=== PATIENT | female | born 1995 | race Caucasian/White ===

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

== ENCOUNTER 2017-04-22 08:32 | Emergency (ER) ==
[2017-04-22 08:47] VITALS: BP 140/85; TEMP 97.9; BMI 30.1
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
[2017-04-22] MEDS ORDERED: NEXT CHOICE ONE DOSE PO STA (10:40)
[2017-04-22 10:46] LABS: BILIRUBIN,URINE 1+ (NEGATIVE); KETONES,URINE 3+ (NEGATIVE); LEUKOCYTE ESTERASE ,URINE Negative (NEGATIVE); NITRITE,URINE Negative (NEGATIVE); PH,URINE 5.5 (5-9); PROTEIN,URINE 1+ (NEGATIVE); URINE, BLOOD Negative (NEGATIVE)
[2017-04-22 10:47] LABS: URINE PREGNANCY INTERNAL QC INTERNAL QC VALID
[2017-04-22 10:59] LABS: COCAIN SCREEN,URINE NEGATIVE (NEGATIVE)
[2017-04-22 11:00] LABS: ADD URINE MICROSCOPIC YES
[2017-04-22 11:04] LABS: KOH PREP NO FUNGAL ELEMENTS (NOT PRESENT); WBC NONE SEEN (FEW)
[2017-04-22 11:18] LABS: HIV INTERNAL QC INTERNAL QC VALID; HIV-1 p24 ANTIGEN SCREEN NEGATIVE (NEGATIVE); HIV-1/2 ANTIBODY SCREEN NEGATIVE (NEGATIVE)
[2017-04-23 07:14] LABS: RAPID PLASMA REAGIN Non Reactive (Non Reactive)
== END 2017-04-22 12:25 | disposition home or self-care (01) ==
LOC: ED 08:32
DX: T76.21XA Adult sexual abuse, suspected, initial encounter (principal); F17.210 Nicotine dependence, cigarettes, uncomplicated
CPT/HCPCS: 36415; 80074; 80306; 81001; 81025; 86592; 87210; 87800; 99285

== ENCOUNTER 2018-08-28 14:32 | Emergency (ER) | payer OTHER ==
[2018-08-28 14:37] VITALS: BP 145/95; TEMP 97.6; BMI 33.3
[2018-08-28] MEDS ORDERED: ZOFRAN 4 MG/2 ML IM STA (14:59)
[2018-08-28 15:35] LABS: URINE PREGNANCY TEST NEGATIVE (NEGATIVE)
--- NOTE | 2018-08-28 16:23 | CT ---
EXAM: CT of the abdomen pelvis without contrast History: Abdominal pain, incontinence. Comparison: CT abdomen pelvis 11/19/2013. Technique: Multiplanar CT images through the abdomen pelvis were obtained without the administration of IV contrast Findings: Lung bases are clear. No acute osseous abnormalities. Gallbladder is not well distended. No focal liver or splenic lesions. No peripancreatic inflammatio n. Adrenal glands are unremarkable. No renal stones and no hydronephrosis. The appendix is not dil ated or inflamed. Mildly dilated fluid-filled loops of colon. No evidence for bowel obstruction. N o abdominal aortic aneurysm. Bladder is not well distended. No bladder wall thickening. Adnexal st ructures appear appropriate for patient's age. No pathologically enlarged lymph nodes. No free air and no ascites. No bowel wall thickening. No pericolonic inflammation. Impression: Mild gastroenteritis and diarrhea, probably viral etiology.
--- NOTE | 2018-08-28 16:32 | ED.PDOC ---
General ED Provider: Dr. THAD MCNAMARA Chief Complaint: Nausea/Vomiting Stated Complaint: n/v/d/ Time Seen by Physician: 14:37 (seen with alexander at all times ) Mode of Arrival: Walk-In Information Source: Patient Exam Limitations: No limitations Nursing and Triage Documentation Reviewed and Agree: Yes Does patient meet sepsis criteria?: No If yes, has appropriate treatment been initiated?: No System Inflammatory Response Syndrome: Not Applicable Sepsis Protocol: For patient's 13 years and over: Temp is 96.8 and below OR 101 and greater Pulse >90 BPM Resp >20/minute Acutely Altered Mental Status Are patient's symptoms suggestive of a new infection, such as: -Pneumonia -Skin, Soft Tissue -Endocarditis -UTI -Bone, Joint Infection -Implantable Device -Acute Abdominal Infection -Wound Infection -Meningitis -Blood Stream Catheter Infection -Unknown GI Complaint Exam - Abdominal Pain Complaint/Exam Onset: Gradual Duration: 1 day Symptoms Are: Still present Timing: Intermittent Initial Severity: Moderate Current Severity: Mild Location of Pain: Discrete Character: Reports: Aching Aggravating: Reports: None Alleviating: Reports: None Associated Signs and Symptoms: Reports: Nausea, Vomiting, Diarrhea. Denies: Diaphoresis, Fever, Cough, Chest pain, Dizziness, Back pain, Constipation, Blood in stool, Dysuria, Urinary frequency, Decreased urine output, Decreased appetite, Vaginal bleeding, Vaginal discharge, Sore throat, Decreased activity Related History: Reports: Similar episode AAA Risk Factors: Reports: None Cardiac Risk Factors: Reports: None Ectopic Risk Factors: Reports: None Ovarian Torsion Risk Factors: Reports: None Surgical Obstruction Risk Factors: Reports: None Related Surgical History: Reports: None Patient Rh Status: Unknown Abdominal Findings: Present: Rebound tenderness Differential Diagnoses: Appendicitis, Bowel Obstruction, Constipation, Diverticulitis, Gastroenteritis, UTI Review of Systems - Review Of Systems Constitutional: Reports: No symptoms Eyes: Reports: No symptoms Ears, Nose, Mouth, Throat: Reports: No symptoms Respiratory: Reports: No symptoms Cardiac: Reports: No symptoms GI: Reports: Abdominal pain, Diarrhea, Nausea, Poor appetite, Vomiting : Reports: No symptoms Musculoskeletal: Reports: No symptoms Skin: Reports: No symptoms Neurological: Reports: No symptoms Endocrine: Reports: No symptoms Hematologic/Lymphatic: Reports: No symptoms All Other Systems: Reviewed and Negative Past Medical History - Past Medical History Previously Healthy: Yes Endocrine: Reports: None Cardiovascular: Reports: None Respiratory: Reports: Asthma, Other (FREQUENT EPISTAXIS tonsilectomy nose cauterized[ End ]) Hematological: Reports: None Gastrointestinal: Reports: None Genitourinary: Reports: None Neuro/Psych: Reports: Bipolar Disorder Musculoskeletal: Reports: None Cancer: Reports: None Last Menstrual Period: 1 week ago - Surgical History General Surgical History: Reports: Tonsillectomy, Other (nose cauterized), Unknown - Family History Family History: Reports: Unknown - Social History Smoking Status: Current every day smoker Hx Substance Use: Yes (meth) Alcohol Screening: None Physical Exam - Physical Exam Appearance: Well-appearing, No pain distress, Well-nourished Eyes: ROBY, EOMI, Conjunctiva clear ENT: Ears normal, Nose normal, Oropharynx normal Respiratory: Airway patent, Breath sounds clear, Breath sounds equal, Respirations nonlabored Cardiovascular: RRR, Pulses normal, No rub, No murmur GI/: Soft, Nontender, No masses, Bowel sounds normal, No Organomegaly Musculoskeletal: Normal strength, ROM intact, No edema, No calf tenderness Skin: Warm, Dry, Normal color Neurological: Sensation intact, Motor intact, Reflexes intact, Cranial nerves intact, Alert, Oriented Psychiatric: Affect appropriate, Mood appropriate Interpretation - Radiology Interpretation Radiology Interpretation By: Radiologist Radiology Results: No acute changes Critical Care Note - Critical Care Note Total Time (mins): 0 Course - Course Hematology/Chemistry: 08/28/18 15:02 08/28/18 15:02 Orders, Labs, Meds: Lab Review 08/28/18 08/28/18 08/28/18 14:55 14:55 14:55 WBC RBC Hgb Hct MCV MCH MCHC RDW Coeff of Christoph Plt Count Immature Gran % (Auto) Neut % (Auto) Lymph % (Auto) [place] % (Auto) Eos % (Auto) Baso % (Auto) Immature Gran # (Auto) Neut # (Auto) Lymph # (Auto) [place] # (Auto) Eos # (Auto) Baso # (Auto) Sodium Potassium Chloride Carbon Dioxide Anion Gap BUN Creatinine Estimated GFR (MDRD) BUN/Creatinine Ratio Glucose Calcium Total Bilirubin AST ALT Alkaline Phosphatase Total Protein Albumin Globulin Albumin/Globulin Ratio Amylase Lipase Urine Color Yellow Urine Clarity Clear Urine pH 6.0 Ur Specific [place] 1.025 Urine Protein 2+ Urine Glucose (UA) Negative Urine Ketones Trace Urine Blood Negative Urine Nitrite Positive Urine Bilirubin 1+ Urine Urobilinogen 1.0 Ur Leukocyte Esterase Trace Urine Microscopic WBC 5-10 Ur Squamous Epith Cells 20-30 Urine Bacteria 1+ Urine Test Negative Urine Opiates Screen Negative Ur Oxycodone Screen Negative Urine Methadone Screen Negative Ur Propoxyphene Screen Negative Ur Barbiturates Screen Negative U Tricyclic Antidepress Negative Ur Phencyclidine Scrn Negative Ur Amphetamine Screen Positive U Methamphetamines Scrn Positive U Benzodiazepines Scrn Negative Urine Cocaine Screen Negative U Cannabinoids Screen Negative Influ A Molecular Assay Influ B Molecular Assay 08/28/18 08/28/18 08/28/18 15:02 15:02 15:08 WBC 12.84 H RBC 5.13 Hgb 15.7 Hct 46.8 MCV 91.2 MCH 30.6 MCHC 33.5 RDW Coeff of Christoph 12.2 Plt Count 377 Immature Gran % (Auto) 0.4 Neut % (Auto) 76.9 Lymph % (Auto) 14.1 [place] % (Auto) 6.1 Eos % (Auto) 2.3 Baso % (Auto) 0.2 Immature Gran # (Auto) 0.1 Neut # (Auto) 9.9 H Lymph # (Auto) 1.8 [place] # (Auto) 0.8 Eos # (Auto) 0.3 Baso # (Auto) 0.0 Sodium 137.7 Potassium 4.39 Chloride 102.7 Carbon Dioxide 25.2 Anion Gap 14.19 BUN 11.1 Creatinine 0.76 Estimated GFR (MDRD) 96.00 BUN/Creatinine Ratio 14.60 Glucose 94.9 Calcium 9.56 Total Bilirubin 0.45 AST 19.0 ALT 14.3 Alkaline Phosphatase 96.4 Total Protein 8.19 Albumin 5.20 H Globulin 2.99 Albumin/Globulin Ratio 1.73 Amylase 44.0 Lipase 18.2 L Urine Color Urine Clarity Urine pH Ur Specific [place] Urine Protein Urine Glucose (UA) Urine Ketones Urine Blood Urine Nitrite Urine Bilirubin Urine Urobilinogen Ur Leukocyte Esterase Urine Microscopic WBC Ur Squamous Epith Cells Urine Bacteria Urine Test Urine Opiates Screen Ur Oxycodone Screen Urine Methadone Screen Ur Propoxyphene Screen Ur Barbiturates Screen U Tricyclic Antidepress Ur Phencyclidine Scrn Ur Amphetamine Screen U Methamphetamines Scrn U Benzodiazepines Scrn Urine Cocaine Screen U Cannabinoids Screen Influ A Molecular Assay Negative by naat Influ B Molecular Assay Negative by naat Orders Category Date Time Status AMYLASE Stat LAB 08/28/18 15:02 Completed CBC W/ AUTO DIFF Stat LAB 08/28/18 15:02 Completed COMPREHENSIVE METABOLIC PANEL Stat LAB 08/28/18 15:02 Completed FLU A/B MOLECULAR Stat LAB 08/28/18 15:08 Completed LIPASE Stat LAB 08/28/18 15:02 Completed MOLECULAR GROUP A STREP Stat LAB 08/28/18 15:08 Completed URINALYSIS C & S IF INDICATED Stat LAB 08/28/18 14:55 Completed URINE CULTURE Stat LAB 08/28/18 14:55 Received URINE DRUG SCREEN (RAPID FOR ED) [DRUG SCREEN, URINE, LAB 08/28/18 14:55 Received RAPID] Stat URINE Stat LAB 08/28/18 14:55 Completed Ondansetron HCl/Pf [Zofran 4 mg/2 ml] MEDS 08/28/18 14:59 Discontinued 8 mg IM ONCE STA CT ABDOMEN/PELVIS WO CONTRAST Stat RADS 08/28/18 14:56 Ordered Medications Discontinued Medications Generic Name Dose Route Start Last Admin Trade Name Freq PRN Reason Stop Dose Admin Ondansetron HCl 8 mg 08/28/18 14:59 08/28/18 15:09 Zofran 4 Mg/2 Ml IM 08/28/18 15:00 8 mg ONCE STA Administration Vital Signs: Temp Pulse Resp BP Pulse Ox 08/28/18 14:33 97.6 F 99 H 20 145/95 H 98 Departure - Departure Time of Disposition: 16:31 Disposition: HOME SELF-CARE Discharge Problem: Nausea, Vomiting UTI (urinary tract infection) Qualifiers: Urinary tract infection type: site unspecified Hematuria presence: without hematuria Qualified Code(s): N39.0 - Urinary tract infection, site not specified Instructions: Dehydration (ED), Gastroenteritis (ED), Gastroenteritis (DC), Acute Nausea and Vomiting (ED) Condition: Good Pt referred to PMD for follow-up: Yes IPMP verified?: No Prescriptions: Sulfamethoxazole/Trimethoprim [Bactrim Ds Tablet] 1 each PO BID #10 tablet Allergies/Adverse Reactions: Allergies No Known Allergies Allergy (Verified 08/28/18 14:36) Home Medications: Ambulatory Orders Sulfamethoxazole/Trimethoprim [Bactrim Ds Tablet] 1 each PO BID #10 tablet 08/28 Disposition Discussed With: Patient
== END 2018-08-28 16:49 | disposition home or self-care (01) ==
LOC: ED 14:32
DX: R11.2 Nausea with vomiting, unspecified (principal); R19.7 Diarrhea, unspecified; R10.9 Unspecified abdominal pain; R63.0 Anorexia; Z72.0 Tobacco use; N39.0 Urinary tract infection, site not specified
CPT/HCPCS: 36415; 80053; 80306; 81001; 81025; 82150; 83690; 85025; 87086; 87186; 87502; 87651; 96372; 99283

== ENCOUNTER 2018-08-29 02:35 | Emergency (ER) ==
[2018-08-29 02:50] VITALS: BP 124/84; TEMP 98.2; BMI 34.5
--- NOTE | 2018-08-29 03:20 | ED.PDOC ---
General ED Provider: Dr. SATISH REID Chief Complaint: Nausea/Vomiting Stated Complaint: viral gastroenteritis.PT was in this ER approx 12 hours ago and was diagnosed and stated on Lomotil and Bactrim.She states that she could not get meds for lack of ability to pay.Same complaints as at the initial appointment. Time Seen by Physician: 02:45 Mode of Arrival: Walk-In Information Source: Patient Exam Limitations: No limitations Referred to ED by: PCP Seen Within Last 72 Hours for Same Complaint By: PCP Nursing and Triage Documentation Reviewed and Agree: Yes Does patient meet sepsis criteria?: No System Inflammatory Response Syndrome: Not Applicable Sepsis Protocol: For patient's 13 years and over: Temp is 96.8 and below OR 101 and greater Pulse >90 BPM Resp >20/minute Acutely Altered Mental Status Are patient's symptoms suggestive of a new infection, such as: -Pneumonia -Skin, Soft Tissue -Endocarditis -UTI -Bone, Joint Infection -Implantable Device -Acute Abdominal Infection -Wound Infection -Meningitis -Blood Stream Catheter Infection -Unknown GI Complaint Exam - Abdominal Pain Complaint/Exam Onset: Sudden Duration: hours Symptoms Are: Still present Timing: Constant Initial Severity: Mild Current Severity: Moderate Location of Pain: Diffuse Radiates To: Reports: Chest, Back, Flank Character: Reports: Aching Aggravating: Reports: Movement, Food, Deep breaths, Eating Alleviating: Reports: Rest, Position, Spontaneous resolution, Medication, Antacids, Vomiting Associated Signs and Symptoms: Reports: Diaphoresis, Fever, Cough, Chest pain, Dizziness, Back pain, Decreased appetite AAA Risk Factors: Reports: Primary relative AAA, Smoking Review of Systems - Review Of Systems Constitutional: Reports: No symptoms Eyes: Reports: No symptoms Ears, Nose, Mouth, Throat: Reports: No symptoms Respiratory: Reports: No symptoms Cardiac: Reports: No symptoms GI: Reports: No symptoms : Reports: No symptoms Musculoskeletal: Reports: No symptoms Skin: Reports: No symptoms Neurological: Reports: No symptoms Endocrine: Reports: No symptoms Hematologic/Lymphatic: Reports: No symptoms All Other Systems: Reviewed and Negative Past Medical History - Past Medical History Previously Healthy: Yes Endocrine: Reports: None Cardiovascular: Reports: None Respiratory: Reports: Asthma, Other (FREQUENT EPISTAXIS tonsilectomy nose cauterized[ End ]) Hematological: Reports: None Gastrointestinal: Reports: None Genitourinary: Reports: None Neuro/Psych: Reports: Bipolar Disorder Musculoskeletal: Reports: None Cancer: Reports: None Last Menstrual Period: 1 WEEK AGO - Surgical History General Surgical History: Reports: Tonsillectomy, Other (nose cauterized), Unknown - Family History Family History: Reports: Unknown - Social History Smoking Status: Current every day smoker, Light tobacco smoker Hx Substance Use: Yes (meth) Alcohol Screening: None - Immunizations Tetanus Shot up to Date: Yes Physical Exam - Physical Exam Appearance: Well-appearing Ill-appearing: Mild Pain Distress: Mild Eyes: ROBY ENT: Ears normal Neck: Supple Respiratory: Airway patent Cardiovascular: Tachycardia GI/: Soft Musculoskeletal: Normal strength Skin: Warm, Dry Neurological: Sensation intact, Unresponsive Psychiatric: Affect appropriate Critical Care Note - Critical Care Note Total Time (mins): 0 Course - Course Orders, Labs, Meds: Orders Category Date Time Status Ondansetron HCl/Pf [Zofran 4 mg/2 ml] MEDS 08/29/18 03:35 Stat 8 mg IVP ONCE STA Sodium Chloride 0.9% [Sodium Chloride] 1,000 ml MEDS 08/29/18 03:36 Active IV BOLUS Medications Generic Name Dose Route Start Last Admin Trade Name Freq PRN Reason Stop Dose Admin Sodium Chloride 1,000 mls @ 1,000 mls/hr 08/29/18 03:36 08/29/18 03:42 Sodium Chloride IV 08/29/18 04:35 1,000 mls/hr BOLUS STA Administration Discontinued Medications Generic Name Dose Route Start Last Admin Trade Name Freq PRN Reason Stop Dose Admin Ondansetron HCl 8 mg 08/29/18 03:35 08/29/18 03:41 Zofran 4 Mg/2 Ml IVP 08/29/18 03:36 8 mg ONCE STA Administration Vital Signs: Temp Pulse Resp BP Pulse Ox 08/29/18 02:39 98.2 F 109 H 20 124/84 98 Departure - Departure Time of Disposition: 04:27 Disposition: HOME SELF-CARE Discharge Problem: Viral enteritis Instructions: Dehydration (ED) Condition: Good Pt referred to PMD for follow-up: Yes IPMP verified?: No Additional Instructions: Take Lomotil and Bactrim as per oroginal script. Allergies/Adverse Reactions: Allergies No Known Allergies Allergy (Verified 08/29/18 02:49) Home Medications: Ambulatory Orders Diphenoxylate HCl/Atropine [Lomotil] 1 tab PO QID #8 tablet 08/28/18 Sulfamethoxazole/Trimethoprim [Bactrim Ds Tablet] 1 each PO BID #10 tablet 08/28 Sulfamethoxazole/Trimethoprim [Bactrim Ds Tablet] 1 each PO BID #10 tablet 08/28 Disposition Discussed With: Family
[2018-08-29] MEDS ORDERED: ZOFRAN 4 MG/2 ML IVP STA (03:35)
[2018-08-29] MEDS ORDERED: SODIUM CHLORIDE 1,000 ML IV STA (03:36)
== END 2018-08-29 04:39 | disposition home or self-care (01) ==
LOC: ED 02:35
DX: A08.4 Viral intestinal infection, unspecified (principal); F17.210 Nicotine dependence, cigarettes, uncomplicated
CPT/HCPCS: 96360; 96375; 99283

== ENCOUNTER 2019-08-08 17:20 | Inpatient (IN) ==
[2019-08-08] MEDS ORDERED: LACTATED RINGERS 1,000 ML IV STA (17:34)
[2019-08-08] MEDS ORDERED: TYLENOL PO STA (17:34)
--- NOTE | 2019-08-08 17:40 | ED.PDOC ---
Medical Screening Exam General Information Time Seen by Physician*: 17:38 Mode of Arrival: Walk-In Information Source: Patient History Chief Complaint: Dizziness Stated Complaint: mild to mod weak and dizzy for 2 days, +fever, +short of breath, no cough, hx smoking, no rash, no lethargy, speech fluent Onset/Duration: 2days Symptoms Are: Still present Timing: Intermittent Severity: Moderate Review Of Systems Constitutional: None CV: Reports None Respiratory: Reports Shortness of air GI: Reports None : Reports None Musculoskeletal: Reports None Neuro: Reports None Past Medical History Past Medical History: [facility] Reproductive History Menstrual Hx Hysterectomy: No Hx Tubal Ligation: No Physical Exam Physical Exam Appearance: Reports Ill-appearing Ill-appearing: None Pain Distress: None Eyes: Reports ROBY, EOMI and Conjunctiva clear ENT: Reports Oropharynx normal and Rhinorrhea Neck: Supple Respiratory: Reports Airway patent and Rhonchi Cardiovascular: Reports Tachycardia GI/: Reports Soft and Nontender Musculoskeletal: Reports Normal strength, ROM intact and No edema Skin: Reports Warm and Dry Neurological: Reports Sensation intact and Alert to pain Psychiatric: Reports Affect appropriate Interpretation Radiology Interpretation Radiology Interpretation By: Radiologist Radiology Results: Positive Exam Interpreted: CXR Xray Comments: bibasilar opacities Re-Evaluation Re-Evaluation Time of Re-Evaluation: 18:48 Status: Improved Appearance: NAD Skin: Warm and Dry Neuro: Alert and Oriented X3 Additional Comments: 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, 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 pending care to Dr Smith at 20:20 while awaiting admission Critical Care Note Critical Care Note Total Time (mins): 0 Course Course Hematology/Chemistry: 08/08/19 17:55 08/08/19 17:55 Orders, Labs, Meds: Lab Review 08/08/19 08/08/19 08/08/19 17:45 17:45 17:55 WBC 10.76 H RBC 4.18 L Hgb 13.0 Hct 37.7 MCV 90.2 MCH 31.1 H MCHC 34.5 RDW Coeff of Christoph 12.2 Plt Count 257 Immature Gran % (Auto) 0.3 Neut % (Auto) 80.9 H Lymph % (Auto) 10.1 Camp % (Auto) 8.4 Eos % (Auto) 0.1 Baso % (Auto) 0.2 Immature Gran # (Auto) 0.0 Neut # (Auto) 8.7 H Lymph # (Auto) 1.1 Camp # (Auto) 0.9 Eos # (Auto) 0.0 Baso # (Auto) 0.0 Sodium Potassium Chloride Carbon Dioxide Anion Gap BUN Creatinine Estimated GFR (MDRD) BUN/Creatinine Ratio Glucose Lactic Acid Calcium Total Bilirubin AST ALT Alkaline Phosphatase Total Protein Albumin Globulin Albumin/Globulin Ratio Serum , Qual Urine Color Yellow Urine Clarity Slightly Urine pH 7.0 Ur Specific Mims 1.015 Urine Protein 1+ H Urine Glucose (UA) Negative Urine Ketones Negative Urine Blood 1+ H Urine Nitrite Positive H Urine Bilirubin Negative Urine Urobilinogen 2.0 H Ur Leukocyte Esterase 2+ H Urine Microscopic RBC 5-10 Urine Microscopic WBC 20-30 Ur Squamous Epith Cells 10-20 Urine Bacteria 2+ Urine Mucus Trace Influ A Molecular Assay Negative by naat Influ B Molecular Assay Negative by naat 08/08/19 08/08/19 08/08/19 17:55 17:55 17:55 WBC RBC Hgb Hct MCV MCH MCHC RDW Coeff of Christoph Plt Count Immature Gran % (Auto) Neut % (Auto) Lymph % (Auto) Camp % (Auto) Eos % (Auto) Baso % (Auto) Immature Gran # (Auto) Neut # (Auto) Lymph # (Auto) Camp # (Auto) Eos # (Auto) Baso # (Auto) Sodium 136.6 Potassium 3.81 Chloride 102.0 Carbon Dioxide 25.1 Anion Gap 13.31 BUN 6.7 L Creatinine 0.98 Estimated GFR (MDRD) 72.00 BUN/Creatinine Ratio 6.83 Glucose 107.7 H Lactic Acid 0.68 L Calcium 9.04 Total Bilirubin 0.56 AST 34.5 ALT 33.6 Alkaline Phosphatase 82.0 Total Protein 7.29 Albumin 4.27 Globulin 3.02 Albumin/Globulin Ratio 1.41 Serum , Qual Negative Urine Color Urine Clarity Urine pH Ur Specific Mims Urine Protein Urine Glucose (UA) Urine Ketones Urine Blood Urine Nitrite Urine Bilirubin Urine Urobilinogen Ur Leukocyte Esterase Urine Microscopic RBC Urine Microscopic WBC Ur Squamous Epith Cells Urine Bacteria Urine Mucus Influ A Molecular Assay Influ B Molecular Assay Orders Category Date Time Status ADMIT PATIENT INPATIENT .TO [facility] (NON-MONITORED ADMISSION 08/08/19 19:15 Active BED) ACTIVITY .Complete BR CARE 08/08/19 18:50 Active INTAKE & OUTPUT Q8HR CARE 08/08/19 18:51 Active VITAL SIGNS Q8HR CARE 08/08/19 18:51 Active REGULAR DIET DIETARY 08/08/19 Dinner Ordered BLOOD CULTURE Stat LAB 08/08/19 18:11 Received CBC W/ AUTO DIFF DAILY@0600 LAB 08/09/19 06:00 Ordered CBC W/ AUTO DIFF DAILY@0600 LAB 08/10/19 06:00 Ordered CBC W/ AUTO DIFF Stat LAB 08/08/19 17:55 Completed COMPREHENSIVE METABOLIC PANEL DAILY@0600 LAB 08/09/19 06:00 Ordered COMPREHENSIVE METABOLIC PANEL DAILY@0600 LAB 08/10/19 06:00 Ordered COMPREHENSIVE METABOLIC PANEL Stat LAB 08/08/19 17:55 Completed FLU A/B MOLECULAR Stat LAB 08/08/19 17:45 Completed LACTIC ACID Stat LAB 08/08/19 17:55 Completed SERUM Stat LAB 08/08/19 17:55 Completed URINALYSIS C & S IF INDICATED Stat LAB 08/08/19 17:45 Completed URINE CULTURE Stat LAB 08/08/19 17:45 Received Acetaminophen [Tylenol] MEDS 08/08/19 17:34 Discontinued 650 mg PO ONCE STA Acetaminophen [Tylenol] MEDS 08/08/19 18:50 Active 650 mg PO Q4H PRN Piperacillin Sodium/Tazobactam [Zosyn 3.375 gm] 3.375 MEDS 08/08/19 17:48 Discontinued gm 0.9 % Sodium Chloride [Sodium Chloride] 50 ml IV ONCE Ringers Lactated Solution [Lactated Ringers] 1,000 ml MEDS 08/08/19 17:34 Discontinued IV BOLUS Sodium Chloride 0.9% [Sodium Chloride] 1,000 ml MEDS 08/08/19 19:00 Active IV 75 mls/hr RESUSCITATION STATUS Routine OTHERS 08/08/19 18:50 Ordered CHEST, 1V AP ONLY Stat RADS 08/08/19 17:34 Completed Medications Generic Name Dose Route Start Last Admin Trade Name Freq PRN Reason Stop Dose Admin Acetaminophen 650 mg 08/08/19 18:50 Tylenol PO Q4H PRN Mild Pain Sodium Chloride 1,000 mls @ 75 mls/hr 08/08/19 19:00 Sodium Chloride IV .[id number] BERNA Discontinued Medications Generic Name Dose Route Start Last Admin Trade Name Freq PRN Reason Stop Dose Admin Acetaminophen 650 mg 08/08/19 17:34 08/08/19 18:23 Tylenol PO 08/08/19 17:35 650 mg ONCE STA Administration Lactated Ringer's 1,000 mls @ 1,000 mls/hr 08/08/19 17:34 08/08/19 18:23 Lactated Ringers IV 08/08/19 18:33 1,000 mls/hr BOLUS STA Administration Piperacillin Sod/Tazobactam 50 mls @ 50 mls/hr 08/08/19 17:48 08/08/19 18:23 Sod 3.375 gm/ Sodium Chloride IV 08/08/19 18:47 50 mls/hr ONCE STA Administration Vital Signs: Temp Pulse Resp BP Pulse Ox 08/08/19 17:20 103.0 F H 132 H 20 120/66 97 Discharge Plan Discharge Patient Disposition: ADMITTED INPATIENT Discharge Problem: Pneumonia Qualifiers: Pneumonia type: due to unspecified organism Laterality: bilateral Lung location: lower lobe of lung Qualified Code(s): J18.9 - Pneumonia, unspecified organism ED Provider: DOMINGUEZ MELTON Condition: Stable
[2019-08-08] MEDS ORDERED: ZOSYN 3.375 GM 3.375 GM in SODIUM CHLORIDE 50 ML IV STA (17:48)
[2019-08-08 18:04] LABS: HEMATOCRIT 37.7 % (37.0-47.0)
--- NOTE | 2019-08-08 18:29 | DI ---
EXAM: Single frontal view of the chest HISTORY: Fever. COMPARISON: Chest x-ray 08/21/2015 and multiple priors FINDINGS: Cardiomediastinal silhouette is normal. There is no pneumothorax or effusion. There is mi nimal patchy ground-glass in the lung bases. There is no discrete consolidation. The osseous struct ures are normal. IMPRESSION: Minimal bibasilar ground-glass opacities which may represent atelectasis versus developi ng infection.
[2019-08-08] MEDS ORDERED: DILAUDID 1 MG/ML SYRINGE IVP STA (21:02)
[2019-08-08] MEDS ORDERED: DILAUDID 1 MG/ML SYRINGE ONE (21:05)
[2019-08-08 21:46] VITALS: BMI 30.5
[2019-08-08] MEDS ORDERED: ULTRAM PO PRN (22:08)
[2019-08-08] MEDS ORDERED: VENTOLIN HFA (PER PUFF-WITH SPACER) IH PRN (22:09)
[2019-08-08] MEDS ORDERED: ZITHROMAX 500 MG in SODIUM CHLORIDE 250 ML IV SCH (22:30)
[2019-08-08] MEDS: SODIUM CHLORIDE 1,000 ML IV SCH (22:50)
[2019-08-09] MEDS: TYLENOL PO PRN ×4 (02:15→19:47)
[2019-08-09 04:18] LABS: HEMATOCRIT 33.8 % (37.0-47.0)
--- NOTE | 2019-08-09 07:44 | PCM ---
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 She denies known contacts w/ ill persons and states she has no health problems and feels she is generally in good health. She has a 2 month old child at home and is concerned for her child's health and that she might have Covid 19. She has been taking tylenol prn at home w/ only slight relief of her symptoms. PMH is positive for mild Seasonal Allergies w/ no OTC therapy needed at this time per patient. Admission Labs/testing abnormals for 08/07 and 08/08 AM includes: CBC WBC 10.7 to 15.71, RBC 4.18 to 3.76L, H/H this AM slightly low 11.6/33.8, Neut% 81.0 H, Lymph% 9.6L, Neut# 8.7 to 12.7H; CMP this AM K+ 3.2 post IVF bolus, BUN 6.6L, Creatinine normal, Tot Protein 6.27L; Lactic acid X2 normal <0.50. Urinalysis no brien Blood 1+, Nitrite +, Urobilinogen 2.0, Leukocytes esterase 21, Micro=WBC 20- 30, Squamous 10-20,and Bacteria 2+. Urine culture preliminary report notes Heavy growth Gram neg rods. Blood cultures X1 results pending. Influenza A/B both negative. Covid 19 screen done w/ positive symptoms fever 103.0 F on admission w/ cough, SOB, and PNA on CXR. Covid [address] Torres and sent to Lab as per [facility] protocol per REBECCA Gifford. 08/08 CXR 1V AP w/ comparison to 08/21/2015 & multiple priors noting minimal bibasilar ground-glass opacities which may represent atelectasis versus developing infection. Patient was admitted as inpatient for CAP and IV ATB therapy, IVF replacement, and supportive measures. She will also be treated for asymptomatic acute cystitis. See Plan of Care. Review of Systems Constitutional: Reports fever (unknown; thermometer not working ), chills, weakness, sweats, fatigue and loss of appetite Eyes: Reports photophobia (slight); Denies blurred vision, double-vision, discharge, itching, pain and redness Ears: Denies pain, bleeding, drainage, ringing and hearing loss Nose: Reports other (no sneezing); Denies bleeding, congestion and discharge Throat: Denies pain, swelling and voice change Mouth: Denies bleeding, pain and swelling Respiratory: Reports cough (intermittent; "only get it when I take a deep breath"; dry BANKING MANAGER), shortness of air (w/ upper chest tigntness/heaviness) and pain with breathing (constant on inspiration); Denies wheeze and hemoptysis Cardiovascular: Reports chest pain (see resp w/ breathing comments), PND, orthopnea (2-3 pillow) and palpitations; Denies left arm pain, diaphoresis, edema and syncope Gastrointestinal: Reports nausea, vomiting (food emesis; 3 episodes in the last 3 days), constipation (last BM 08/05/2019) and other; Denies abdominal pain, diarrhea, melena, hematemesis, hematochezia and dysphagia Genitourinary: Denies dysuria, hematuria, frequency, flank pain, vaginal d ischarge, abnormal bleeding, pelvic pain and other Last Menstrual Cycle: 1 week ago Neurological: Reports headache (mid frontal "throbbing"; rated 7/10; persistant for last 12 hrs.) and dizziness; Denies seizure, numbness, weakness, speech difficulty, problems with walking, tremor and fainting Musculoskeletal: Reports pain (generalized); Denies swelling in joints Skin: Denies rash, pruritus, lacerations, wounds and bruising Hematology: Reports easy bruising; Denies easy bleeding and swollen glands Endocrine: Reports weight changes (Lost 27 lbs since of her baby 06/16/2019) Psychiatric: Reports sleeplessness and hopelessness ("because of feeling so sick"); Denies depression, anxiety, suicidal and hallucinations Habits: Reports tobacco use (1/2 PPD X 9yrs; wants to quit no w/o RX or nicotine patch,.); Denies substance use, alcohol use and other Allergies Allergies Allergy/AdvReac Type Severity Reaction Status Date / Time No Known Allergies Allergy Verified 08/08/19 17:23 PFSH Medical History (Updated 08/09/19 @ 10:12 by NUNU KRUGER) Eustachian tube dysfunction Seasonal allergies Surgical History (Updated 08/09/19 @ 07:11 by NUNU KRUGER) Status post tonsillectomy and adenoidectomy Family History (Updated 08/09/19 @ 07:24 by NUNU KRUGER) Mother No problems noted. FATHER Hypertension Cardiomyopathy Alcohol abuse Social History (Updated 08/09/19 @ 07:29 by NUNU KRUGER) Smoking and tobacco status: Current every day smoker Tobacco: How many years used: 8 (1/2ppd) Smoking status start date: 08/09/19 Quit status: considering quitting Second hand smoke exposure: Yes Alcohol intake: current Alcohol intake frequency: former alcohol drinker Adopted: No Household members: spouse, family and children Marital status: M Lives independently: Yes Number of children: 1 Highest education level completed: high school graduate Current occupational status: unemployed Pets and animals: Yes (1 hoyse dog) History of recent travel: Yes ([place] frequently ) Do you think of yourself as: straight/heterosexual Current gender identity: female Medications Medications: Medications Generic Name Dose Route Start Last Admin Trade Name Freq PRN Reason Stop Dose Admin Acetaminophen 650 mg 08/08/19 18:50 08/09/19 02:15 Tylenol PO 650 mg Q4H PRN Administration Mild Pain Albuterol Sulfate 2 puff 08/08/19 22:09 Ventolin Hfa (Per Puff-With Spacer) IH Q4H PRN wheezing or cough Guaifenesin/Dextromethorphan 5 ml 08/08/19 22:09 Robitussin Dm Syrup PO Q4H PRN Cough Sodium Chloride 1,000 mls @ 75 mls/hr 08/08/19 19:00 08/08/19 22:50 Sodium Chloride IV 75 mls/hr .[id number] BERNA Administration Azithromycin 500 mg/ Sodium 250 mls @ 125 mls/hr 08/09/19 21:00 Chloride IV 08/11/19 22:29 BEDTIME BERNA Tramadol HCl 50 mg 08/08/19 22:08 Ultram PO Q8H PRN Analgesia Body Composition Height: 5 ft 7 in Weight: 195 lb Body Mass Index (BMI): 30.5 Vital Signs Temperature: 98.4 F Pulse Rate: 94 Respiratory Rate: 18 Blood Pressure: 100/66 O2 Sat by Pulse Oximetry: 95 Physical Examination Appearance: Reports Ill-appearing and Well-nourished Ill-appearing: Moderate Pain Distress: Mild Eyes: Reports ROBY, EOMI and Conjunctiva clear ENT: Reports Ears normal, Nose normal and Oropharynx normal; Denies TMs Occluded, Rhinorrhea and Epistaxis Neck: Supple Respiratory: Reports Airway patent, Breath sounds clear, Breath sounds equal and Respirations nonlabored; Denies Crackles, Rhonchi, Wheezes and Retractions Cardiovascular: Reports RRR, Pulses normal, No rub and No murmur; Denies Irregular rhythm, Tachycardia (SR/ST on telemetry.), Abnormal pulses (PPP 2+/4+. ) and Murmur GI/: Reports Soft, No masses, Bowel sounds normal, No Organomegaly and Tender (mild suprapubic tenderness to palpation w/o guarding or rebound. ) Musculoskeletal: Reports Normal strength, ROM intact, No edema and No calf tenderness Skin: Reports Warm, Dry and Normal color; Denies Diaphoretic and Cyanotic Neurological: Reports Sensation intact, Motor intact, Reflexes intact, Cranial nerves intact, Alert and Oriented Psychiatric: Reports Affect appropriate and Mood appropriate; Denies Anxious and Depressed Lab/Tests/Diagnostic Imaging Lab/Tests/Diagnostic Imaging: Lab Review 08/08/19 08/08/19 08/08/19 17:45 17:45 17:55 WBC 10.76 H RBC 4.18 L Hgb 13.0 Hct 37.7 MCV 90.2 MCH 31.1 H MCHC 34.5 RDW Coeff of Christoph 12.2 Plt Count 257 Immature Gran % (Auto) 0.3 Neut % (Auto) 80.9 H Lymph % (Auto) 10.1 Stephens % (Auto) 8.4 Eos % (Auto) 0.1 Baso % (Auto) 0.2 Immature Gran # (Auto) 0.0 Neut # (Auto) 8.7 H Lymph # (Auto) 1.1 Stephens # (Auto) 0.9 Eos # (Auto) 0.0 Baso # (Auto) 0.0 Sodium Potassium Chloride Carbon Dioxide Anion Gap BUN Creatinine Estimated GFR (MDRD) BUN/Creatinine Ratio Glucose Lactic Acid Calcium Total Bilirubin AST ALT Alkaline Phosphatase Total Protein Albumin Globulin Albumin/Globulin Ratio Serum , Qual Urine Color Yellow Urine Clarity Slightly Urine pH 7.0 Ur Specific Clemons 1.015 Urine Protein 1+ H Urine Glucose (UA) Negative Urine Ketones Negative Urine Blood 1+ H Urine Nitrite Positive H Urine Bilirubin Negative Urine Urobilinogen 2.0 H Ur Leukocyte Esterase 2+ H Urine Microscopic RBC 5-10 Urine Microscopic WBC 20-30 Ur Squamous Epith Cells 10-20 Urine Bacteria 2+ Urine Mucus Trace Influ A Molecular Assay Negative by naat Influ B Molecular Assay Negative by naat 08/08/19 08/08/19 08/08/19 17:55 17:55 17:55 WBC RBC Hgb Hct MCV MCH MCHC RDW Coeff of Christoph Plt Count Immature Gran % (Auto) Neut % (Auto) Lymph % (Auto) Stephens % (Auto) Eos % (Auto) Baso % (Auto) Immature Gran # (Auto) Neut # (Auto) Lymph # (Auto) Stephens # (Auto) Eos # (Auto) Baso # (Auto) Sodium 136.6 Potassium 3.81 Chloride 102.0 Carbon Dioxide 25.1 Anion Gap 13.31 BUN 6.7 L Creatinine 0.98 Estimated GFR (MDRD) 72.00 BUN/Creatinine Ratio 6.83 Glucose 107.7 H Lactic Acid 0.68 L Calcium 9.04 Total Bilirubin 0.56 AST 34.5 ALT 33.6 Alkaline Phosphatase 82.0 Total Protein 7.29 Albumin 4.27 Globulin 3.02 Albumin/Globulin Ratio 1.41 Serum , Qual Negative Urine Color Urine Clarity Urine pH Ur Specific Clemons Urine Protein Urine Glucose (UA) Urine Ketones Urine Blood Urine Nitrite Urine Bilirubin Urine Urobilinogen Ur Leukocyte Esterase Urine Microscopic RBC Urine Microscopic WBC Ur Squamous Epith Cells Urine Bacteria Urine Mucus Influ A Molecular Assay Influ B Molecular Assay 08/09/19 08/09/19 08/09/19 04:11 04:11 04:11 WBC 15.71 H RBC 3.76 L Hgb 11.6 L Hct 33.8 L MCV 89.9 MCH 30.9 MCHC 34.3 RDW Coeff of Christoph 12.2 Plt Count 227 Immature Gran % (Auto) 0.5 Neut % (Auto) 81.0 H Lymph % (Auto) 9.6 L Stephens % (Auto) 8.7 Eos % (Auto) 0.1 Baso % (Auto) 0.1 Immature Gran # (Auto) 0.1 Neut # (Auto) 12.7 H Lymph # (Auto) 1.5 Stephens # (Auto) 1.4 Eos # (Auto) 0.0 Baso # (Auto) 0.0 Sodium 137.5 Potassium 3.20 L Chloride 105.1 Carbon Dioxide 21.8 L Anion Gap 13.80 BUN 6.6 L Creatinine 0.88 Estimated GFR (MDRD) 80.00 BUN/Creatinine Ratio 7.50 Glucose 101.8 Lactic Acid < 0.50 L D Calcium 8.58 Total Bilirubin 0.60 AST 34.7 ALT 32.9 Alkaline Phosphatase 79.6 Total Protein 6.27 L Albumin 3.61 Globulin 2.66 Albumin/Globulin Ratio 1.35 Serum , Qual Urine Color Urine Clarity Urine pH Ur Specific Clemons Urine Protein Urine Glucose (UA) Urine Ketones Urine Blood Urine Nitrite Urine Bilirubin Urine Urobilinogen Ur Leukocyte Esterase Urine Microscopic RBC Urine Microscopic WBC Ur Squamous Epith Cells Urine Bacteria Urine Mucus Influ A Molecular Assay Influ B Molecular Assay 08/09/2019 CXR 1V AP COMPARISON: Chest x-ray 08/21/2015 and multiple priors FINDINGS: Cardiomediastinal silhouette is normal. There is no pneumothorax or effusion. There is minimal patchy ground-glass in the lung bases. There is no discrete consolidation. The osseous structures are normal. IMPRESSION: Minimal bibasilar ground-glass opacities which may represent atelectasis versus developing infection. Orders Category Date Time Status ADMIT PATIENT INPATIENT .TO [facility] (NON-MONITORED ADMISSION 08/08/19 19:15 Active BED) ACTIVITY .Complete BR CARE 08/08/19 18:50 Active INTAKE & OUTPUT Q8HR CARE 08/08/19 18:51 Active Telemetry [TELEMETRY MONITORING] TELE CARE 08/08/19 22:37 Active VITAL SIGNS Q4HR CARE 08/08/19 18:51 Active REGULAR DIET DIETARY 08/08/19 Dinner Ordered BLOOD CULTURE Stat LAB 08/08/19 18:11 Received CBC W/ AUTO DIFF DAILY@0600 LAB 08/09/19 04:11 Completed CBC W/ AUTO DIFF DAILY@0600 LAB 08/10/19 06:00 Ordered CBC W/ AUTO DIFF Stat LAB 08/08/19 17:55 Completed COMPREHENSIVE METABOLIC PANEL DAILY@0600 LAB 08/09/19 04:11 Completed COMPREHENSIVE METABOLIC PANEL DAILY@0600 LAB 08/10/19 06:00 Ordered COMPREHENSIVE METABOLIC PANEL Stat LAB 08/08/19 17:55 Completed FLU A/B MOLECULAR Stat LAB 08/08/19 17:45 Completed LACTIC ACID Routine LAB 08/09/19 04:11 Completed LACTIC ACID Stat LAB 08/08/19 17:55 Completed SERUM Stat LAB 08/08/19 17:55 Completed URINALYSIS C & S IF INDICATED Stat LAB 08/08/19 17:45 Completed URINE CULTURE Stat LAB 08/08/19 17:45 Received Acetaminophen [Tylenol] MEDS 08/08/19 17:34 Discontinued 650 mg PO ONCE STA Acetaminophen [Tylenol] MEDS 08/08/19 18:50 Active 650 mg PO Q4H PRN Albuterol Inhaler(with Spacer) [Ventolin Hfa (Per Puff- MEDS 08/08/19 22:09 Active with Spacer)] 2 puff IH Q4H PRN Azithromycin Inj [Zithromax] 500 mg MEDS 08/09/19 21:00 Active 0.9 % Sodium Chloride [Sodium Chloride] 250 ml IV BEDTIME Azithromycin Inj [Zithromax] 500 mg MEDS 08/08/19 22:30 Discontinued 0.9 % Sodium Chloride [Sodium Chloride] 250 ml IV DAILY Guaifenesin/Dextromethorphan [Robitussin Dm Syrup] MEDS 08/08/19 22:09 Active 5 ml PO Q4H PRN Hydromorphone HCl [Dilaudid 1 mg/ml Syringe] MEDS 08/08/19 21:05 Discontinued 1 mg .ROUTE .STK-MED ONE Hydromorphone HCl [Dilaudid 1 mg/ml Syringe] MEDS 08/08/19 21:02 Discontinued 1 mg IVP ONCE STA Piperacillin Sodium/Tazobactam [Zosyn 3.375 gm] 3.375 MEDS 08/08/19 17:48 Discontinued gm 0.9 % Sodium Chloride [Sodium Chloride] 50 ml IV ONCE Ringers Lactated Solution [Lactated Ringers] 1,000 ml MEDS 08/08/19 17:34 Discontinued IV BOLUS Sodium Chloride 0.9% [Sodium Chloride] 1,000 ml MEDS 08/08/19 19:00 Active IV 75 mls/hr Tramadol HCl [Ultram] MEDS 08/08/19 22:08 Active 50 mg PO Q8H PRN RESUSCITATION STATUS Routine OTHERS 08/08/19 18:50 Ordered CHEST, 1V AP ONLY Stat RADS 08/08/19 17:34 Completed Medications Generic Name Dose Route Start Last Admin Trade Name Frejordy PRN Reason Stop Dose Admin Acetaminophen 650 mg 08/08/19 18:50 08/09/19 02:15 Tylenol PO 650 mg Q4H PRN Administration Mild Pain Albuterol Sulfate 2 puff 08/08/19 22:09 Ventolin Hfa (Per Puff-With Spacer) IH Q4H PRN wheezing or cough Guaifenesin/Dextromethorphan 5 ml 08/08/19 22:09 Robitussin Dm Syrup PO Q4H PRN Cough Sodium Chloride 1,000 mls @ 75 mls/hr 08/08/19 19:00 08/08/19 22:50 Sodium Chloride IV 75 mls/hr .[id number] BERNA Administration Azithromycin 500 mg/ Sodium 250 mls @ 125 mls/hr 08/09/19 21:00 Chloride IV 08/11/19 22:29 BEDTIME BERNA Tramadol HCl 50 mg 08/08/19 22:08 Ultram PO Q8H PRN Analgesia Discontinued Medications Generic Name Dose Route Start Last Admin Trade Name Frejordy PRN Reason Stop Dose Admin Acetaminophen 650 mg 08/08/19 17:34 08/08/19 18:23 Tylenol PO 08/08/19 17:35 650 mg ONCE STA Administration Hydromorphone HCl 1 mg 08/08/19 21:02 08/08/19 21:06 Dilaudid 1 Mg/Ml Syringe IVP 08/08/19 21:03 1 mg ONCE STA Administration Lactated Ringer's 1,000 mls @ 1,000 mls/hr 08/08/19 17:34 08/08/19 18:23 Lactated Ringers IV 08/08/19 18:33 1,000 mls/hr BOLUS STA Administration Piperacillin Sod/Tazobactam 50 mls @ 50 mls/hr 08/08/19 17:48 08/08/19 18:23 Sod 3.375 gm/ Sodium Chloride IV 08/08/19 18:47 50 mls/hr ONCE STA Administration Azithromycin 500 mg/ Sodium 250 mls @ 125 mls/hr 08/08/19 22:30 08/08/19 22:50 Chloride IV 08/11/19 22:29 125 mls/hr DAILY BERNA Administration Assessment (1) CAP (community acquired pneumonia): Status: Acute Code(s): J18.9 - Pneumonia, unspecified organism SNOMED Code(s): 831285151 Qualifiers: Laterality: unspecified laterality Qualified Code(s): J18.9 - Pneumonia, unspecified organism (2) Suspected SARS: Status: Acute Code(s): R09.89 - Other specified symptoms and signs involving the circulatory and respiratory systems SNOMED Code(s): 23414766079941 (3) Acute cystitis: Status: Acute Code(s): N30.00 - Acute cystitis without hematuria SNOMED Code(s): 05318552 Qualifiers: Hematuria presence: with hematuria Qualified Code(s): N30.01 - Acute cystitis with hematuria Plan Plan: CAP--New onset 3 days ago w/ CXR findings and fever 103 degrees F on a dmission WBC increased this Am to 15.7; Con't Zithromax 500mg IV Q 24hrs X 3 doses; Add Ceftriaxone 1 GM Q 24 hrs. Con't telemetry; O2 per protocol prn; Robitussin prn; Albuterol inhaler prn; monitor labs; VS Q 4 hrs; Force fluids; IVF cont'd; up with assistance due to intermittent dizziness/fall risk. Suspected SARS-Covid 19-new finding; Covid 19 specimen [facility] lab as per [facility] protocol; Isolation cont'd; no nebulizers; gentle IVF's; treat symptoms prn. Asymptomatic Acute Cystitis--incidental finding w/ unknown suprapubic tenderness on PE, otherwise no symptoms. Awaiting urine C&S results w/ Ceftraxione IV; I&O; force PO fluids.
[2019-08-09] MEDS ORDERED: K-DUR PO STA (08:24)
[2019-08-09] MEDS: ROCEPHIN 1 GM/50 ML D5W 1 GM/50 ML BAG IV SCH (09:47)
[2019-08-09] MEDS: SODIUM CHLORIDE 1,000 ML IV SCH ×2 (10:01→14:45)
[2019-08-09] MEDS: ROBITUSSIN DM SYRUP PO PRN ×2 (17:15→21:25)
[2019-08-09] MEDS ORDERED: ZITHROMAX 500 MG in SODIUM CHLORIDE 250 ML IV SCH (21:00)
[2019-08-10] MEDS: TYLENOL PO PRN ×3 (00:05→12:13)
[2019-08-10] MEDS: SODIUM CHLORIDE 1,000 ML IV SCH ×2 (05:36→11:39)
[2019-08-10 05:45] LABS: HEMATOCRIT 32.5 % (37.0-47.0)
--- NOTE | 2019-08-10 06:59 | PCM.PROG ---
Date Seen by Provider: 08/10/19 Time Seen by Provider: 06:58 Subjective: Patient resting quietly in bed and arouses easily. Afebrile; admits she is taking Tylenol every 4 hrs to keep her fever down. States she is breathing easier today w/o SOB/NINO. Cough is very rare and GENERAL INTERNIST. Has some lower back and R flank mild discomfort. Notes some burning w/ urination; denies hematuria, cloudy or foul smelling urine. Taking PO fluids w/ encouragement. Appetite good; denies abdominal pain, nausea or vomiting. Dizziness has improved and now rare per patient. Denies chest pain; thinks she has swelling in her bladder area. NO other new complaints. Objective: Vitals: T=98.4 F, P=88, R=16, KU=510/76, SPO2=99 HEENT: Eyes-no redness, swelling or d/c. Nose: patent; no drainage or sneezing. Ears: pinna w/o tenderness/pain. Hearing intact/normal. Pharynx: mild cobblestoning, No lesions or PND. No dysphagia. Neck: Supple; NT; No lymphadenopathy Lungs: CTA. No rales, rhonchi, crackles, or wheezing. No cough on exam. No retractions. Respirations easy and regular. RA O2 sat 99%. CVS: RRR; S1, S2. No murmurs or gallops. No edema. No cyanosis; NBB Abdomen: Soft, mild suprapubic tenderness on palpation w/o rebound tenderness or guarding, no organomegaly or masses. SOREN/SO present. Extremities: LEONARDO well w/ symmetry. Bilaterally X4 extremities strength 2+/4+ =. No edema. No muscular tenderness, erythema, or abnormalities X4 extremities. Ambulates w/ steady gait. Neurological: A/O X4. Cooperative and pleasant. Good eye contact. Up and about in room w/o assistance; steady. Normal gait. Speech clear. No other abnormali ties noted. Skin: Dry & intact. No rashes or lesions noted. Skin in general is very warm to touch (3 blankets over pt---removed 2). Lab/Tests/Diagnostic Imaging: Laboratory Results - last 24 hr 08/10/19 08/10/19 05:23 05:23 WBC 11.95 H RBC 3.57 L Hgb 11.0 L Hct 32.5 L MCV 91.0 MCH 30.8 MCHC 33.8 RDW Coeff of Christoph 12.2 Plt Count 168 Immature Gran % (Auto) 0.5 Neut % (Auto) 71.1 Lymph % (Auto) 17.2 [place] % (Auto) 10.2 H Eos % (Auto) 0.8 Baso % (Auto) 0.2 Immature Gran # (Auto) 0.1 Neut # (Auto) 8.5 H Lymph # (Auto) 2.1 [place] # (Auto) 1.2 Eos # (Auto) 0.1 Baso # (Auto) 0.0 Sodium 138.3 Potassium 3.66 Chloride 106.2 Carbon Dioxide 25.1 Anion Gap 10.66 BUN 4.8 L Creatinine 0.62 Estimated GFR (MDRD) 120.00 BUN/Creatinine Ratio 7.74 Glucose 103.3 Calcium 8.76 Total Bilirubin 0.47 AST 39.1 H ALT 46.8 H Alkaline Phosphatase 82.4 Total Protein 6.22 L Albumin 3.43 L Globulin 2.79 Albumin/Globulin Ratio 1.22 (1) CAP (community acquired pneumonia): Status: Acute Code(s): J18.9 - Pneumonia, unspecified organism SNOMED Code(s): 184654024 (2) Suspected SARS: Status: Acute Code(s): R09.89 - Other specified symptoms and signs involving the circulatory and respir atory systems SNOMED Code(s): 45354885529851 (3) Acute cystitis: Status: Acute Code(s): N30.00 - Acute cystitis without hematuria SNOMED Code(s): 56903773 Plan: CAP--Improving w/ New onset 3 days ago --afebrile w/ frequent Tylenol taken; WBC decreased from 15.7 to 11.95; Con't Zithromax 500mg IV Q 24hrs X 3 doses to be completed w/ 08/10 AM dose; Cont Ceftriaxone 1 GM Q 24 hrs. and d/c on 7 days tx Omnicef 300mg PO Q 12hrs; Con't telemetry; O2 per protocol prn--not needed at present w/ 98% sat on RA; Robitussin prn; Albuterol inhaler prn(not needed so far); monitor labs--AST & ALT sl. elevated this AM(39.1/46.8 respectively); VS Q 4 hrs; Force fluids; IVF cont'd; up with assistance due to intermittent dizziness/fall risk--ambulating in room frequently today. Suspected SARS-Covid 19-test negative; recommend scarf or homemade mask when d/c as has CAP and 2 mos old son at home; Isolation cont'd for PNA; no nebulizers; gentle IVF's; treat symptoms prn. Asymptomatic Acute Cystitis--incidental finding w/ unknown suprapubic tenderness on PE, otherwise no symptoms. Urine C&S notes heavy growth Gram neg rods; Con't Ceftraxione IV w/ ATB on d/c as suggested per C&S results; plan d/c in AM after IV antibiotics if no problems; UTI prevention/causes discussed w/ patient verbalizing understanding; I&O; force PO fluids.
[2019-08-10] MEDS: ROCEPHIN 1 GM/50 ML D5W 1 GM/50 ML BAG IV SCH (08:11)
--- NOTE | 2019-08-10 10:57 | PCM.DC ---
Final Diagnosis: CAP & Acute Cystitis (1) CAP (community acquired pneumonia): Status: Acute Code(s): J18.9 - Pneumonia, unspecified organism SNOMED Code(s): 030208899 Qualifiers: Laterality: unspecified laterality Qualified Code(s): J18.9 - Pneumonia, unspecified organism (2) Acute cystitis: Status: Acute Code(s): N30.00 - Acute cystitis without hematuria SNOMED Code(s): 08607596 Qualifiers: Hematuria presence: with hematuria Qualified Code(s): N30.01 - Acute cystitis with hematuria (3) Suspected SARS: Status: Acute Code(s): R09.89 - Other specified symptoms and signs involving the circulatory and respiratory systems SNOMED Code(s): 84628486040689 Reason for Hospitalization: Fever and noted PNA on CXR needing IV antibiotics and hydration. See hospital course. Prognosis at Discharge: Good. Condition at Discharge: Stable/Improved. Medications at Discharge: Ambulatory Orders Medication Instructions Recorded 1 Omnicef 300mg Take 1 capsule PO every 12 hrs X 8 days 04/17/19 Lab/Diagnostics: Comprehensive Lab Summary 08/08/19 08/08/19 08/08/19 Range/Units 17:45 17:45 17:55 WBC 10.76 H (4.6-10.2) K/ul RBC 4.18 L (4.20-5.40) 10^6/ul Hgb 13.0 (12.0-16.0) g/dl Hct 37.7 (37.0-47.0) % MCV 90.2 (81.0-99.0) fl MCH 31.1 H (27.0-31.0) pg MCHC 34.5 (31.8-35.4) RDW Coeff of Christoph 12.2 (11.6-14.8) % Plt Count 257 (140-440) 10^3/uL Immature Gran % (Auto) 0.3 (0.0-5.0) % Neut % (Auto) 80.9 H (42.2-75.2) % Lymph % (Auto) 10.1 (10.0-50.0) [place] % (Auto) 8.4 (0-10) Eos % (Auto) 0.1 (0.0-7.0) % Baso % (Auto) 0.2 (0.0-3.0) % Immature Gran # (Auto) 0.0 (0.0-1.0) Neut # (Auto) 8.7 H (2.0-6.9) K/ul Lymph # (Auto) 1.1 (0.60-3.4) K/uL [place] # (Auto) 0.9 (0.4-2.0) K/uL Eos # (Auto) 0.0 (0.0-0.7) K/ul Baso # (Auto) 0.0 (0-0.2) K/uL Sodium (134.5-145) mmol/L Potassium (3.5-5.1) mmol/L Chloride (98-107) mmol/L Carbon Dioxide (22-30.0) mmol/L Anion Gap BUN (7-17) mg/dL Creatinine (0.60-1.30) mg/dL Estimated GFR (MDRD) mL/min BUN/Creatinine Ratio Glucose (74-106) mg/dL Lactic Acid (0.7-2.1) mmol/L Calcium (8.4-10.2) mg/dL Total Bilirubin (0.2-1.3) mg/dL AST (14-36) U/L ALT (0-35) U/L Alkaline Phosphatase (38-126) U/L Total Protein (6.3-8.2) g/dL Albumin (3.5-5.0) g/dL Globulin Albumin/Globulin Ratio Serum , Qual (NEGATIVE) Urine Color Yellow (YELLOW) Urine Clarity Slightly (CLEAR) Urine pH 7.0 (5-9) Ur Specific [place] 1.015 (1.005-1.030) Urine Protein 1+ H (NEGATIVE) Urine Glucose (UA) Negative (NEGATIVE) Urine Ketones Negative (NEGATIVE) Urine Blood 1+ H (NEGATIVE) Urine Nitrite Positive H (NEGATIVE) Urine Bilirubin Negative (NEGATIVE) Urine Urobilinogen 2.0 H (0.2) Ur Leukocyte Esterase 2+ H (NEGATIVE) Urine Microscopic RBC 5-10 (0-2) Urine Microscopic WBC 20-30 (0-2) Ur Squamous Epith Cells 10-20 (0-5) Urine Bacteria 2+ (NOT PRESENT) Urine Mucus Trace (NOT PRESENT) Influ A Molecular Assay Negative by naat (NEGATIVE) Influ B Molecular Assay Negative by naat (NEGATIVE) 08/08/19 08/08/19 08/08/19 Range/Units 17:55 17:55 17:55 WBC (4.6-10.2) K/ul RBC (4.20-5.40) 10^6/ul Hgb (12.0-16.0) g/dl Hct (37.0-47.0) % MCV (81.0-99.0) fl MCH (27.0-31.0) pg MCHC (31.8-35.4) RDW Coeff of Christoph (11.6-14.8) % Plt Count (140-440) 10^3/uL Immature Gran % (Auto) (0.0-5.0) % Neut % (Auto) (42.2-75.2) % Lymph % (Auto) (10.0-50.0) [place] % (Auto) (0-10) Eos % (Auto) (0.0-7.0) % Baso % (Auto) (0.0-3.0) % Immature Gran # (Auto) (0.0-1.0) Neut # (Auto) (2.0-6.9) K/ul Lymph # (Auto) (0.60-3.4) K/uL [place] # (Auto) (0.4-2.0) K/uL Eos # (Auto) (0.0-0.7) K/ul Baso # (Auto) (0-0.2) K/uL Sodium 136.6 (134.5-145) mmol/L Potassium 3.81 (3.5-5.1) mmol/L Chloride 102.0 (98-107) mmol/L Carbon Dioxide 25.1 (22-30.0) mmol/L Anion Gap 13.31 BUN 6.7 L (7-17) mg/dL Creatinine 0.98 (0.60-1.30) mg/dL Estimated GFR (MDRD) 72.00 mL/min BUN/Creatinine Ratio 6.83 Glucose 107.7 H (74-106) mg/dL Lactic Acid 0.68 L (0.7-2.1) mmol/L Calcium 9.04 (8.4-10.2) mg/dL Total Bilirubin 0.56 (0.2-1.3) mg/dL AST 34.5 (14-36) U/L ALT 33.6 (0-35) U/L Alkaline Phosphatase 82.0 (38-126) U/L Total Protein 7.29 (6.3-8.2) g/dL Albumin 4.27 (3.5-5.0) g/dL Globulin 3.02 Albumin/Globulin Ratio 1.41 Serum , Qual Negative (NEGATIVE) Urine Color (YELLOW) Urine Clarity (CLEAR) Urine pH (5-9) Ur Specific [place] (1.005-1.030) Urine Protein (NEGATIVE) Urine Glucose (UA) (NEGATIVE) Urine Ketones (NEGATIVE) Urine Blood (NEGATIVE) Urine Nitrite (NEGATIVE) Urine Bilirubin (NEGATIVE) Urine Urobilinogen (0.2) Ur Leukocyte Esterase (NEGATIVE) Urine Microscopic RBC (0-2) Urine Microscopic WBC (0-2) Ur Squamous Epith Cells (0-5) Urine Bacteria (NOT PRESENT) Urine Mucus (NOT PRESENT) Influ A Molecular Assay (NEGATIVE) Influ B Molecular Assay (NEGATIVE) 08/09/19 08/09/19 08/09/19 Range/Units 04:11 04:11 04:11 WBC 15.71 H (4.6-10.2) K/ul RBC 3.76 L (4.20-5.40) 10^6/ul Hgb 11.6 L (12.0-16.0) g/dl Hct 33.8 L (37.0-47.0) % MCV 89.9 (81.0-99.0) fl MCH 30.9 (27.0-31.0) pg MCHC 34.3 (31.8-35.4) RDW Coeff of Christoph 12.2 (11.6-14.8) % Plt Count 227 (140-440) 10^3/uL Immature Gran % (Auto) 0.5 (0.0-5.0) % Neut % (Auto) 81.0 H (42.2-75.2) % Lymph % (Auto) 9.6 L (10.0-50.0) [place] % (Auto) 8.7 (0-10) Eos % (Auto) 0.1 (0.0-7.0) % Baso % (Auto) 0.1 (0.0-3.0) % Immature Gran # (Auto) 0.1 (0.0-1.0) Neut # (Auto) 12.7 H (2.0-6.9) K/ul Lymph # (Auto) 1.5 (0.60-3.4) K/uL [place] # (Auto) 1.4 (0.4-2.0) K/uL Eos # (Auto) 0.0 (0.0-0.7) K/ul Baso # (Auto) 0.0 (0-0.2) K/uL Sodium 137.5 (134.5-145) mmol/L Potassium 3.20 L (3.5-5.1) mmol/L Chloride 105.1 (98-107) mmol/L Carbon Dioxide 21.8 L (22-30.0) mmol/L Anion Gap 13.80 BUN 6.6 L (7-17) mg/dL Creatinine 0.88 (0.60-1.30) mg/dL Estimated GFR (MDRD) 80.00 mL/min BUN/Creatinine Ratio 7.50 Glucose 101.8 (74-106) mg/dL Lactic Acid < 0.50 L D (0.7-2.1) mmol/L Calcium 8.58 (8.4-10.2) mg/dL Total Bilirubin 0.60 (0.2-1.3) mg/dL AST 34.7 (14-36) U/L ALT 32.9 (0-35) U/L Alkaline Phosphatase 79.6 (38-126) U/L Total Protein 6.27 L (6.3-8.2) g/dL Albumin 3.61 (3.5-5.0) g/dL Globulin 2.66 Albumin/Globulin Ratio 1.35 Serum , Qual (NEGATIVE) Urine Color (YELLOW) Urine Clarity (CLEAR) Urine pH (5-9) Ur Specific [place] (1.005-1.030) Urine Protein (NEGATIVE) Urine Glucose (UA) (NEGATIVE) Urine Ketones (NEGATIVE) Urine Blood (NEGATIVE) Urine Nitrite (NEGATIVE) Urine Bilirubin (NEGATIVE) Urine Urobilinogen (0.2) Ur Leukocyte Esterase (NEGATIVE) Urine Microscopic RBC (0-2) Urine Microscopic WBC (0-2) Ur Squamous Epith Cells (0-5) Urine Bacteria (NOT PRESENT) Urine Mucus (NOT PRESENT) Influ A Molecular Assay (NEGATIVE) Influ B Molecular Assay (NEGATIVE) 08/10/19 08/10/19 Range/Units 05:23 05:23 WBC 11.95 H (4.6-10.2) K/ul RBC 3.57 L (4.20-5.40) 10^6/ul Hgb 11.0 L (12.0-16.0) g/dl Hct 32.5 L (37.0-47.0) % MCV 91.0 (81.0-99.0) fl MCH 30.8 (27.0-31.0) pg MCHC 33.8 (31.8-35.4) RDW Coeff of Christoph 12.2 (11.6-14.8) % Plt Count 168 (140-440) 10^3/uL Immature Gran % (Auto) 0.5 (0.0-5.0) % Neut % (Auto) 71.1 (42.2-75.2) % Lymph % (Auto) 17.2 (10.0-50.0) [place] % (Auto) 10.2 H (0-10) Eos % (Auto) 0.8 (0.0-7.0) % Baso % (Auto) 0.2 (0.0-3.0) % Immature Gran # (Auto) 0.1 (0.0-1.0) Neut # (Auto) 8.5 H (2.0-6.9) K/ul Lymph # (Auto) 2.1 (0.60-3.4) K/uL [place] # (Auto) 1.2 (0.4-2.0) K/uL Eos # (Auto) 0.1 (0.0-0.7) K/ul Baso # (Auto) 0.0 (0-0.2) K/uL Sodium 138.3 (134.5-145) mmol/L Potassium 3.66 (3.5-5.1) mmol/L Chloride 106.2 (98-107) mmol/L Carbon Dioxide 25.1 (22-30.0) mmol/L Anion Gap 10.66 BUN 4.8 L (7-17) mg/dL Creatinine 0.62 (0.60-1.30) mg/dL Estimated GFR (MDRD) 120.00 mL/min BUN/Creatinine Ratio 7.74 Glucose 103.3 (74-106) mg/dL Lactic Acid (0.7-2.1) mmol/L Calcium 8.76 (8.4-10.2) mg/dL Total Bilirubin 0.47 (0.2-1.3) mg/dL AST 39.1 H (14-36) U/L ALT 46.8 H (0-35) U/L Alkaline Phosphatase 82.4 (38-126) U/L Total Protein 6.22 L (6.3-8.2) g/dL Albumin 3.43 L (3.5-5.0) g/dL Globulin 2.79 Albumin/Globulin Ratio 1.22 Serum , Qual (NEGATIVE) Urine Color (YELLOW) Urine Clarity (CLEAR) Urine pH (5-9) Ur Specific [place] (1.005-1.030) Urine Protein (NEGATIVE) Urine Glucose (UA) (NEGATIVE) Urine Ketones (NEGATIVE) Urine Blood (NEGATIVE) Urine Nitrite (NEGATIVE) Urine Bilirubin (NEGATIVE) Urine Urobilinogen (0.2) Ur Leukocyte Esterase (NEGATIVE) Urine Microscopic RBC (0-2) Urine Microscopic WBC (0-2) Ur Squamous Epith Cells (0-5) Urine Bacteria (NOT PRESENT) Urine Mucus (NOT PRESENT) Influ A Molecular Assay (NEGATIVE) Influ B Molecular Assay (NEGATIVE) 08/08/19 17:45 Urine,Random Urine Culture - Final Escherichia Coli Name: JOSE SALOMON :1995 Age/Sex:24/F Att Dr:KRISTA KRUGER Acct: [id number] Unit: [id number] Status: ADM IN Location: [place] [address]- Re08/08/19 Disch: Specimen: [id number] COMP Collected: 08/08/19-1744 Received: 08/08/19 Source: RANDOM Sp Descrip: Procedure Result URINE CULTURE Final COLONY COUNT | >100,000 CFU/ml GROWTH | HEAVY GROWTH TYPE: | GRAM NEGATIVE RODS Organism 1 | ESCHERICHIA COLI RESULT | E COLI M.I.C. RX --------- --- * AMOXACILLIN/CLAVULANATE <=2 S AMPICILLIN <=2 S * AMPICILLIN/SULBACTAM <=2 S * CEFAZOLIN <=4 S * CEFEPIME <=1 S * ESBL - * CEFTRIAXONE <=1 S * CIPROFLOXACIN <=0.25 S * ERTAPENEM <=0.5 S * GENTAMICIN <=1 S * IMIPENEM <=0.25 S * LEVOFLOXACIN 0.5 S * NITROFURANTOIN <=16 S TOBRAMYCIN <=1 S * TRIMETHOPRIM/SULFAMETHOXAZOLE <=20 S * PIPERACILLIN/TAZOBACTAM <=4 S URINE CULTURE Final (changed) COLONY COUNT | >100,000 CFU/ml GROWTH | HEAVY GROWTH TYPE: | GRAM NEGATIVE RODS Organism 1 | ESCHERICHIA COLI RESULT | E COLI M.I.C. RX --------- --- * AMOXACILLIN/CLAVULANATE <=2 S AMPICILLIN <=2 S * AMPICILLIN/SULBACTAM <=2 S * CEFAZOLIN <=4 S * CEFEPIME <=1 S * ESBL - * CEFTRIAXONE <=1 S * CIPROFLOXACIN <=0.25 S * ERTAPENEM <=0.5 S * GENTAMICIN <=1 S * IMIPENEM <=0.25 S * LEVOFLOXACIN 0.5 S * NITROFURANTOIN <=16 S TOBRAMYCIN <=1 S * TRIMETHOPRIM/SULFAMETHOXAZOLE <=20 S * PIPERACILLIN/TAZOBACTAM <=4 S URINE CULTURE Preliminary (changed) COLONY COUNT | >100,000 CFU/ml GROWTH | HEAVY GROWTH TYPE: | GRAM NEGATIVE RODS RESULT 08/08/19 18:11 Blood Blood Culture - Preliminary NEGATIVE AFTER 1 DAY. 08/08/19 17:55 Blood Blood Culture - Preliminary NEGATIVE AFTER 1 DAY. 08/09/2019 CXR 1V AP COMPARISON: Chest x-ray 08/21/2015 and multiple priors FINDINGS: Cardiomediastinal silhouette is normal. There is no pneumothorax or effusion. There is minimal patchy ground-glass in the lung bases. There is no discrete consolidation. The osseous structures are normal. IMPRESSION: Minimal bibasilar ground-glass opacities which may represent atelectasis versus developing infection. Education Provided to Patient and Family: Diet as tolerated. Drink at least 8-10 eight ounce glasses of water daily. Caffeine drinks will dehydrate you if consumed in large amounts. Carbonated beverages not recommended. Exercise as tolerated; be sure you are moving around frequently and may walk outside if weather is nice. Continue to practice social isolation as per CDC guidelines. Complete your antibiotics as ordered.---Omnicef 300mg 1 PO Q 12 hrs X 8 days. Repeat clean catch urinalysis Tuesday08/20/2019 and follow-up with PCP to see if urinary infection has completely resolved or more treatment is needed. May use Tylenol as per package directions as needed for fever/pain. Do not use Ibuprofen, Motrin, or NSAIDS (ask pharmacist). [facility]. Report to Emergency Room if worsening or symptoms or any concerns---See discharge handouts. KEEP YOUR MOUTH COVERED WITH A MASK OR HANDKERCHIEF ESPECIALLY WHILE CARING FOR YOUR INFANT TO PREVENT SPREAD OF GERMS THROUGH COUGH/SNEEZE. Handouts given and discussed -- Covid 19; CAP; How to Wash Your Hands; UTI in Women Follow-ups: Follow-up appt. 08/14/2019 14:30 w/ Crissy Arita APRN. Discharge Disposition: Home Hospital Course: Day 1 Jose Salomon presented to [facility] ER 08/09/2019 17:20 w/ onset 3 days ELECTRICAL HIGH TENSION TESTER of worsening to frequent "shakes". Patient was found upon admission to have TMax 103 degrees F/ 102.8 08/08 02:00. There was associated altered mental status "like I was walking around confused", generalized weakness, sweats, fatigue, loss of appetite, photophobia, mid- frontal throbbing headache lasting 12 hrs (last HS) rated 7/10, intermittent dry, CALCULATION CLERK cough w/ upper chest pain on inspiration and cough, 2 pillow orthopnea, heart palpitations "racing", nausea, and vomiting (food-like emesis), sleeplessness, and generalized myalgias. PMH is positive for mild Seasonal Allergies w/ no OTC therapy needed at this time per patient. WBC were slightly elevated @ 10.7, and Urinalysis was positive for Blood 1+, Nitrite, Urobilinogen 2.0, Leukocytes 21 w/ Micro noting @BC 20-30 and Bacteria 2+. CXR noted minimal bibasilar ground-glass opacities which may represent atelectasis versus developing infection. Her lactic acid was normal; Influenza A/B both negative. Urine Culture and Blood cultures were done. Covid NG testing was performed in ER. Patient was admitted for CAP, and Acute Asymptomatic Cystitis. IVF bolus of 1L NS and Unisyn IVPB and Azythromycin 500mg IVPB was administered in ER. Day 2 The patient was feeling somewhat better, but WBC increased to 15.71, RBC decreased to 3.76 (w/ IV hydration & delivery of son 06/2019), H/H also slightly declined 11.6/33.8, Neut% 81.0 H, Lymph% 9.6L, Neut# 12.7H; decrease K+ 3.2 post IVF bolus, BUN 6.6L, Creatinine normal, Tot Protein 6.27L; Lactic acid was repeated <0.50. Floor admission H&P assessment noted diminished breath sounds, but clear lungs w/ rare TNP cough and unknown suprapubic tenderness on palpation w/ otherwise negative physical exam. Patient was anxious re: her COVID testing results and to be away from her 2 month old son. Unisyn w/ D/C's w/ Azithromy wendi 500mg IVPB Q 24hrs X 3 doses and Ceftriaxone 1GM Q 24hrs. Patient wast Rx's Albuterol inhaler and Robitusin prn, but patient did not take. She was on Tylenol prn frequently. TMax day 2 was 99.2 degrees F. Urine C&S report noted Heavy growth Gram neg rods. Blood cultures X1 results pending. Covid 19 screen done d/t positive symptoms fever 103.0 F on admission w/ cough, SOB, and PNA on CXR; results pending. IVF cont'd w/ no other changes in plan of care beside Antibiotics previously discussed. Day 3--Covid 19 results received during late evening 08/10/2019 were negative. Discussed results w/ patient who was relieved, but informed her Covid 19 sheltering in w/ precautions as issued by CDC will still need to be observed now and upon discharge. Patient has now been afebrile for >24hrs. frequent Tylenol taken; WBC decreased from 15.7 to 11.95; AST & ALT sl. elevated this AM(39.1/46.8 respectively) possibly d/t infection and frequent Tylenol; will need to monitor LFT's after D/C w/ PCP. Patient has become upset as is frequently calling her w/ baby crying in the background. Patient states my can't take care of our baby and there is no one to help at home! CALCULATION CLERK talked at length w/ patient of need to finish 1 more day of antibiotics and risks of re-infection if ATB's not completed and the exposure of PNA for her infant and dangers of taking care of her child if she was not well. Patient insists she is well enough to be discharged despite CALCULATION CLERK explanations of risks and patient says she will stay till late afternoon if she can go home then. CALCULATION CLERK talked w/ Pharm-D who suggests giving the 3rd dose of Zithromax 500mg IV at 14:00 today and then d/c w/ RX 8 days tx Omnicef 300mg PO Q 12hrs. Patient agreed to get up out of bed and ambulate the halls 5-6 times per hour, drink at least one container of fluids every 1-2 hours, and if VS stable, be d/c w/ f-u next week w/ PCP. Patient remained afebrile w/ stable VS. Assessment was es sentially negative. on D/C. No O2 therapy or inhalers were needed. Cough was very rare and TNP. Patient denied SOB, NINO, CP, hemoptysis, dysuria, hematuria, fever, chills, or any new symptoms. She will need a clean catch for C&S if indicated Tuesday08/20/2019. See plan of care notes. Plan: CAP--Improving w/antibiotics; WBC decreased from 15.7 to 11.95. Zithromycin 500mg IVPB X 3 days completed in hospital. Ceftriaxone changed to OP 8 days tx Omnicef 300mg PO Q 12hrs; Afebrile for >24hrs w/ frequent Tylenol taken. Mild transaminits this AM--should take Tylenol sparingly and use PO fluids to flush her body and avoid lots of covers or heavy clothing; O2 prn was never needed w/ O2 sat on d/c 99% RA; recheck AST & A:T in 2weeks w/ CBC. Suspected SARS-Covid 19-test negative; recommend scarf or homemade mask when d/c as has CAP and 2 mos old son at home that doesn't need respiratory exposure from mother/patient; continue Covid 19 CDC recommendations as per CDC handout. Asymptomatic Acute Cystitis--incidental finding w/ unknown suprapubic tenderness on PE, otherwise no symptoms. Urine C&S notes heavy growth Gram neg rods; Discussed Ceftriaxone substitution w/ Char Lead pharmacist LEANDRO Rodriguez and they agree w/ Omnicef 300mg PO Q12 hrs X8 days w/Repeat clean catch urinalysis Tuesday08/20/2019 and follow-up with PCP to see if urinary infection has completely resolved or more treatment is needed. UTI prevention/causes discussed w/ patient verbalizing understanding--see d/c Handout; force PO fluids.
[2019-08-10] MEDS ORDERED: ZITHROMAX 500 MG in SODIUM CHLORIDE 250 ML IV ONE (13:30)
[2019-08-10 14:08] VITALS: BP 116/70; TEMP 98.2
== END 2019-08-10 16:18 | disposition home or self-care (01) | DRG 194 ==
LOC: ED 17:20 → SCU 20:44
PROVIDERS: ADMIT Nurse Practitioner Family; ATTEND Nurse Practitioner Family
DX: R05 Cough; R50.9 Fever, unspecified; R11.2 Nausea with vomiting, unspecified; K59.00 Constipation, unspecified; R51 Headache; J18.9 Pneumonia, unspecified organism; F17.210 Nicotine dependence, cigarettes, uncomplicated; R07.1 Chest pain on breathing; R00.0 Tachycardia, unspecified; R09.89 Other specified symptoms and signs involving the circulatory and respiratory systems; M54.5 Low back pain; Z03.818 Encounter for observation for suspected exposure to other biological agents ruled out; R53.1 Weakness; R63.0 Anorexia; R06.02 Shortness of breath; R42 Dizziness and giddiness; B96.20 Unspecified Escherichia coli [E. coli] as the cause of diseases classified elsewhere; H53.149 Visual discomfort, unspecified; R10.9 Unspecified abdominal pain; R41.0 Disorientation, unspecified; N30.01 Acute cystitis with hematuria; R53.83 Other fatigue